=== PATIENT | male | born 1995 | race Caucasian/White ===

== ENCOUNTER 2017-02-16 20:22 | Emergency (ER) | payer BC ==
[2017-02-16 20:35] VITALS: RESP 18; TEMP 98.2
[2017-02-16] MEDS: LET GEL TOPICAL 1 EA SYR TP ONE (20:43)
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
[2017-02-16 21:51] VITALS: BP 144/72
[2017-02-16] MEDS ORDERED: IBUPROFEN 600 MG TAB PO ONE (22:20)
[2017-02-16] MEDS: IBUPROFEN 600 MG TAB PO ONE (22:21)
[2017-02-16 22:31] VITALS: PULSE 60; O2SAT 97
== END 2017-02-16 22:30 | disposition home or self-care (01) ==
DX: S52.125A Nondisplaced fracture of head of left radius, initial encounter for closed fracture (principal); S00.81XA Abrasion of other part of head, initial encounter; V18.0XXA Pedal cycle driver injured in noncollision transport accident in nontraffic accident, initial encounter; Y99.8 Other external cause status; Y93.55 Activity, bike riding
CPT/HCPCS: L3908